=== PATIENT | female | born 1980 | race Hispanic/Latino ===

== ENCOUNTER 2022-04-08 06:20 | Emergency (ER) | payer MEDICAID ==
[2022-04-08 06:59] VITALS: BP 120/65
--- NOTE | 2022-04-08 08:11 | Emergency Department Report ---
Chief Complaint: Urogenital-Female Stated Complaint: RT BREAST PAIN/LEAKING FLUID Time Seen by Provider: 04/08/22 07:51 - HPI History of Present Illness: Patient is a pleasant 41-year-old that comes to the emergency room with a lump that she found on self breast exam. She is here for mammogram. - ROS Review of Systems: No symptoms other than the noted right breast right upper quadrant lump. - Exam Vital Signs: Vital Signs 04/08/22 06:55 Temperature 97.9 F Pulse Rate 75 Respiratory 16 Rate Blood Pressure 120/65 Blood Pressure 120/65 [Right] O2 Sat by Pulse 100 Oximetry Physical Exam: Patient has no medical problems. No history of breast cancer. She is on no home medications. Alert and oriented x4 S1-S2 Lungs clear to auscultation Small less than 1 cm x 1 cm superficial cystic breast lump, right breast, right upper quadrant. No nipple discharge. No nipple inversion. No cellulitis. No pain on palpation. Abdomen soft nontender. Patient has had no weight loss. Patient has no history of breast cancer. MSE screening note: Focused history and physical exam performed. Due to findings the following was ordered: I explained to patient that she does need a mammogram but they did not get done in the emergency room. I have given her a referral to our radiology/mammogram department. She has [employer] insurance so she can also call her insurance company for referral for mammogram. Patient has no life-threatening medical emergency. Being MSE 8 from ER. ED Disposition for MSE Clinical Impression: Breast lump Disposition: 07 LEFT AWOL/ELOPED Is pt being admited?: No Does the pt Need Aspirin: No Condition: Stable Instructions: Breast Self-Awareness Additional Instructions: SCHEDULING FOR MAMOGRAM Forms: Work/School Release Form(ED) Time of Disposition: 08:07
== END 2022-04-08 10:51 | disposition left against medical advice (07) ==
LOC: ED 06:20
DX: N63.11 Unspecified lump in the right breast, upper outer quadrant (principal)
CPT/HCPCS: 99281

== ENCOUNTER 2022-04-28 15:00 | Emergency (ER) | payer OTHER, MEDICAID ==
--- NOTE | 2022-04-28 17:09 | Cat Scan Report ---
CT head/brain wo con INDICATION / CLINICAL INFORMATION: 41 years Female; facial injuries with headaches. TECHNIQUE: Routine CT head without contrast. All CT scans at this location are performed using CT dos e reduction for ALARA by means of automated exposure control. COMPARISON: None. FINDINGS: BRAIN / INTRACRANIAL CONTENTS: No acute hemorrhage, mass effect, midline shift, hydrocephalus, or acu te, large territorial infarct. No signs of significant atrophy or chronic infarct. No significant whi te matter abnormality seen. CRANIOCERVICAL JUNCTION: No significant abnormality. ORBITS: No significant abnormality of visualized orbits. SINUSES / MASTOIDS: Visualized paranasal sinuses and mastoid air cells are essentially clear. ADDITIONAL FINDINGS: There may be a slight nasal bone fracture of the frontal process of the maxilla on the [id number]. IMPRESSION: 1. No focal mass, intracranial hemorrhage, hydrocephalus, or acute, large territorial infarct. Signer Name: Alexandre Jones MD, III Signed: 04/28/2022 5:05 PM Workstation Name: [id number]
--- NOTE | 2022-04-28 17:13 | Cat Scan Report ---
CT facial bones wo con INDICATION / CLINICAL INFORMATION: 41 years Female; facial injuries with headaches. TECHNIQUE: Thin cut axial images obtained. Sagittal and coronal reconstructions performed. All CT scans at this location are performed using CT dose reduction for ALARA by means of automated exposure control. COMPARISON: None available. FINDINGS: Subtle fracture of the frontal process the maxilla right with approximately 1 mm of displacement. The re may be mild, subcutaneous soft tissue swelling adjacent to this finding. Please correlate with loc ation of patient's injury. Otherwise, no signs of acute bony facial trauma. There is nasal septum deviation-convexity towards the right anteriorly at the level of middle meatus and towards the left more posteriorly at the level of the middle turbinate. Leftward directed nasal s pur seen as well, causing mild mass effect on the left middle turbinate. Mild temporomandibular joint disease noted. Poor dentition noted. IMPRESSION: 1. Minimally displaced fracture of the frontal process of the maxilla on the right. Signer Name: Alexandre Jones MD, III Signed: 04/28/2022 5:09 PM Workstation Name: [id number]
[2022-04-28] MEDS ORDERED: oxyCODONE /ACETAMINOPHEN 5-325MG TAB PO ONE (17:36)
[2022-04-28] MEDS ORDERED: KETOROLAC 10 MG TAB PO ONE (17:36)
--- NOTE | 2022-04-28 17:56 | Emergency Department Report ---
ED General Adult HPI - General Chief complaint: Pain General Stated complaint: NOSE INJURY Time Seen by Provider: 04/28/22 15:48 Source: patient Mode of arrival: Ambulatory Limitations: No Limitations - History of Present Illness Severity scale (0 -10): 9 - Related Data Previous Rx's Medication Instructions Recorded Last Taken Type Acetaminophen/Codeine [Tylenol #3] 1 tab PO TID PRN #15 tab 04/23/15 Unknown Rx methOCARBAMOL [Robaxin TAB] 500 mg PO BID #20 tab 04/23/15 Unknown Rx Acetaminophen/Codeine [Tylenol 1 tab PO Q6H PRN #12 tab 04/28/22 Unknown Rx /Codeine # 3 tab] Naproxen [Naprosyn] 500 mg PO BID #14 tab 04/28/22 Unknown Rx Allergies Allergy/AdvReac Type Severity Reaction Status Date / Time No Known Allergies Allergy Unverified 04/23/15 17:12 ED Review of Systems ROS: Stated complaint: NOSE INJURY Other details as noted in HPI ED Past Medical Hx - Past Medical History Previous Medical History?: No - Surgical History Hx Appendectomy: Yes Additional Surgical History: PARTIAL HYSTERECTOMY (2008) - Social History Smoking Status: Unknown if ever smoked - Medications Home Medications: Home Medications Medication Instructions Recorded Confirmed Last Taken Type Acetaminophen/Codeine [Tylenol #3] 1 tab PO TID PRN #15 tab 04/23/15 Unknown Rx methOCARBAMOL [Robaxin TAB] 500 mg PO BID #20 tab 04/23/15 Unknown Rx Acetaminophen/Codeine [Tylenol 1 tab PO Q6H PRN #12 tab 04/28/22 Unknown Rx /Codeine # 3 tab] Naproxen [Naprosyn] 500 mg PO BID #14 tab 04/28/22 Unknown Rx ED Physical Exam - General Limitations: No Limitations ED Course Vital Signs 04/28/22 15:20 Temperature 97.6 F Pulse Rate 75 Respiratory 18 Rate Blood Pressure 129/55 [Right] O2 Sat by Pulse 99 Oximetry Critical care attestation.: If time is entered above; I have spent that time in minutes in the direct care of this critically ill patient, excluding procedure time. ED Disposition Clinical Impression: Maxillary fracture Qualifiers: Encounter type: initial encounter Fracture type: closed Laterality: right Qualified Code(s): S02.40CA - Maxillary fracture, right side, initial encounter for closed fracture Disposition: 01 HOME / SELF CARE / HOMELESS Is pt being admited?: No Does the pt Need Aspirin: No Condition: Stable Instructions: Nasal Fracture, Exna-yp-Ycth Additional Instructions: Take medications as prescribed. Follow-up with oral maxillofacial surgeon for further evaluation and management. Return to the emergency department as needed. Prescriptions: Naproxen [Naprosyn] 500 mg PO BID #14 tab Acetaminophen/Codeine [Tylenol /Codeine # 3 tab] 1 tab PO Q6H PRN #12 tab PRN Reason: pain Referrals: [facility] [Referring] - 3-5 Days [facility] [Staff Physician] - 3-5 Days Time of Disposition: 17:56
[2022-04-28 18:19] VITALS: BP 128/78
== END 2022-04-28 18:18 | disposition home or self-care (01) ==
LOC: ED 15:00
DX: S02.40CA Maxillary fracture, right side, initial encounter for closed fracture (principal); X58.XXXA Exposure to other specified factors, initial encounter; Y93.89 Activity, other specified; Y92.89 Other specified places as the place of occurrence of the external cause; Y99.8 Other external cause status
CPT/HCPCS: 70450; 70486; 99283